=== PATIENT | female | born 1945 | race Caucasian/White ===

== ENCOUNTER 2020-12-30 21:30 | Emergency (ER) | payer MEDICARE ==
--- NOTE | 2020-12-30 23:05 | EDM.PDOC ---
ED HPI GENERAL MEDICAL PROBLEM - General Chief Complaint: Lower Extremity Injury/Pain Stated Complaint: HIP PAIN/FALL Time Seen by Provider: 12/30/20 22:09 Source of Information: Reports: Patient, Family History Limitations: Reports: No Limitations - History of Present Illness INITIAL COMMENTS - FREE TEXT/NARRATIVE: Lubna is a 75-year-old female presenting to the ED for evaluation of acute onset of left hip pain. This occurred after she fell today landing on her buttock. The patient has been wearing a walking boot on her right ankle since injuring it 5 days ago. She has had significant swelling and bruising but did not get it evaluated and instead has been putting it in a walking boot that she already had at home. She has had difficulty with ambulating due to pain with weightbearing on the right and when she fell today was unable to get back up because of pain in the bilateral lower extremities with weightbearing. Patient denies any other injuries. There is no significant internal rotation or shortening of the leg. There is no pain with palpation over the evelyn, groin, or proximal femur. There is pain with movement of the hip. Patient denies any numbness or tingling. Because she did not get the right ankle assessed days ago and is continuing to have increasing pain, we will also evaluate her ankle/foot at this time.. The patient has not been able to bear weight on either extremity since the fall. She lives with her daughter who has been available to help care for her, however, her daughter is concerned because the patient has had 2 falls now in 2 days. Yesterday she was able to catch her before she fell to the ground, however, today she was not. The daughter is very concerned that the patient is at increased fall risk and now that she cannot bear weight the daughter has no idea how should be able to care for her at home. Left Hip Pain Score (Numeric/FACES): 10 - Related Data Allergies Allergy/AdvReac Type Severity Reaction Status Date / Time No Known Allergies Allergy Verified 12/30/20 21:34 Home Meds: Home Meds Rosuvastatin [Crestor] 5 mg PO BEDTIME 12/30/20 [History] Past Medical History HEENT History: Reports: Impaired Vision Cardiovascular History: Reports: High Cholesterol - Past Surgical History Female Surgical History: Reports: Hysterectomy Social & Family History - Tobacco Use Tobacco Use Status *Q: Never Tobacco User - Recreational Drug Use Recreational Drug Use: No Review of Systems - Review of Systems Review Of Systems: See Below Constitutional: Reports: No Symptoms Eyes: Reports: No Symptoms Ears: Reports: No Symptoms Nose: Reports: No Symptoms Mouth/Throat: Reports: No Symptoms Respiratory: Reports: No Symptoms Cardiovascular: Reports: No Symptoms GI/Abdominal: Reports: No Symptoms Genitourinary: Reports: No Symptoms Musculoskeletal: Reports: Joint Pain (Left hip pain and right foot and ankle pain), Joint Swelling (Right foot and ankle swelling) Skin: Reports: No Symptoms Neurological: Reports: Difficulty Walking (Patient cannot bear weight due to pain) Psychiatric: Reports: No Symptoms ED EXAM, GENERAL - Physical Exam Exam: See Below Exam Limited By: No Limitations General Appearance: Alert, No Apparent Distress Eye Exam: Bilateral Eye: EOMI, PERRL Throat/Mouth: Normal Inspection, Normal Lips, Normal Oropharynx, Normal Voice, No Airway Compromise Head: Atraumatic, Normocephalic Neck: Normal Inspection Respiratory/Chest: No Respiratory Distress, Lungs Clear, Normal Breath Sounds Cardiovascular: Normal Peripheral Pulses, Regular Rate, Rhythm, No Murmur Peripheral Pulses: 2+: Posterior Tibial (L), Posterior Tibial (R) Back Exam: No: Paraspinal Tenderness, Vertebral Tenderness Extremities: No Pedal Edema, Normal Capillary Refill, Joint Swelling (Significant swelling, ecchymosis, and tenderness of the right foot. The patient has been wearing a walking boot for the last 5 days since the initial injury.), Limited Range of Motion (Pain with flexion and internal rotation of the left hip.), Other (Significant ecchymosis and swelling of the dorsal right foot. There is pain with movement of the first and second toes.) Neurological: Alert, Oriented, Normal Cognition, No Motor/Sensory Deficits Psychiatric: Normal Affect, Normal Mood Skin Exam: Warm, Dry, Intact, Normal Color Course - Vital Signs Last Recorded V/S: Last Vital Signs Temp 36.3 C 12/30/20 21:38 Pulse 114 H 12/30/20 21:38 Resp 18 12/30/20 21:38 BP 132/89 12/30/20 21:38 Pulse Ox 95 12/30/20 21:38 - Orders/Labs/Meds Orders: Active Orders 24 hr Category Date Time Status Foot Comp Min 3V Rt [CR] Stat Exams 12/30/20 22:19 Taken Hip Min 2V or 3V w Pelvis Lt [CR] Stat Exams 12/30/20 22:11 Taken Labs: Laboratory Tests 12/30/20 Range/Units 23:40 SARS CoV-2 RNA Rapid JAZMIN Negative - Radiology Interpretation Free Text/Narrative:: I reviewed the x-rays of the pelvis and left hip. There is no acute fractures. 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 Reviewed the x-rays of the right foot showing a displaced intra-articular fracture at the base of the second toe. - Re-Assessments/Exams Free Text/Narrative Re-Assessment/Exam: 12/30/20 23:20 I reviewed the findings of the x-rays with the family and patient. The concern is that the patient is not able to bear weight on either lower extremity at this time and her daughter does not feel that she can adequately care for the patient at home in her current condition. Although there is no fracture evident of either the pelvis or left hip, she has significant pain with certain movements and with standing. In addition, she has a displaced fracture of the second toe at the base that is now 5 days old. She has difficulty ambulating with a walking boot that she has been using. The daughter and patient came to the agreement that she likely needs admission for consideration of a transition care unit where she can get physical therapy and gait stability before going home. We have no beds available here at this time so I will reach out to [facility] in [place]. I discussed the case with Dr. Uribe who is the hospitalist on-call [facility] who accepts the patient in transfer for admission there. He will arrange for her to undergo further assessment including PT and OT. Departure - Departure Time of Disposition: 00:05 Disposition: DC/Tfer to [facility] 02 Clinical Impression: Left hip pain, Recurrent falls Fracture of toe of right foot Qualifiers: Encounter type: initial encounter Toe: lesser toe Fracture type: closed Phalanx: proximal Fracture alignment: displaced Qualified Code(s): S92.511A - Displaced fracture of proximal phalanx of right lesser toe(s), initial encounter for closed fracture - Discharge Information Referrals: Lindsay Ahmadi MD [Primary Care Provider] - Forms: ED Department Discharge Sepsis Event Note (ED) - Evaluation Sepsis Screening Result: No Definite Risk - Focused Exam Vital Signs: Vital Signs Temp Pulse Resp BP Pulse Ox 12/30/20 21:38 36.3 C 114 H 18 132/89 95 12/30/20 21:37 36.3 C 114 H 18 132/89 95 - Problem List & Annotations (1) Fracture of toe of right foot SNOMED Code(s): 28922378 Code(s): S92.911A - UNSP FRACTURE OF RIGHT TOE(S), INIT FOR CLOS FX Status: Acute Priority: Medium Qualifiers: Encounter type: initial encounter Toe: lesser toe Fracture type: closed Phalanx: proximal Fracture alignment: displaced Qualified Code(s): S92.511A - Displaced fracture of proximal phalanx of right lesser toe(s), initial encounter for closed fracture (2) Left hip pain SNOMED Code(s): 45210900 Code(s): M25.552 - PAIN IN LEFT HIP Status: Acute Priority: Medium (3) Recurrent falls SNOMED Code(s): 445486123 Code(s): R29.6 - REPEATED FALLS Status: Acute Priority: Medium - Problem List Review Problem List Initiated/Reviewed/Updated: Yes - My Orders Last 24 Hours: My Active Orders 12/30/20 22:11 Hip Min 2V or 3V w Pelvis Lt [CR] Stat 12/30/20 22:19 Foot Comp Min 3V Rt [CR] Stat - Assessment/Plan Last 24 Hours: My Active Orders 12/30/20 22:11 Hip Min 2V or 3V w Pelvis Lt [CR] Stat 12/30/20 22:19 Foot Comp Min 3V Rt [CR] Stat
--- NOTE | 2020-12-31 08:52 | CR ---
Hip Min 2V or 3V w Pelvis Lt CLINICAL HISTORY: Fall, pain FINDINGS: No fracture or dislocation is identified. There is mild joint space narrowing. There is some sclerosis in the upper left SI joint. IMPRESSION: No fracture or dislocation
--- NOTE | 2020-12-31 08:59 | CR ---
Foot Comp Min 3V Rt CLINICAL HISTORY: Injury FINDINGS: There is a slightly displaced fracture through the base of the second proximal phalanx with articular surface involvement. IMPRESSION: Fracture through base of second proximal phalanx
== END 2020-12-31 01:00 ==
LOC: JP.ED 21:30
DX: S92.511A Displaced fracture of proximal phalanx of right lesser toe(s), initial encounter for closed fracture (principal); M25.552 Pain in left hip; E78.00 Pure hypercholesterolemia, unspecified; R29.6 Repeated falls; Z79.899 Other long term (current) drug therapy; Z20.822 Contact with and (suspected) exposure to COVID-19; W18.39XA Other fall on same level, initial encounter
CPT/HCPCS: 73502; 73630; 99284; U0002

== ENCOUNTER 2021-08-03 06:18 | Day surgery (SDC) | payer MEDICARE ==
[2021-08-03] MEDS ORDERED: Sodium Chloride 0.9% 1,000 ML IV SCH (07:00)
[2021-08-03] MEDS ORDERED: Propofol 200 MG/20 ML SDV ONE (07:22)
[2021-08-03] MEDS ORDERED: fentaNYL 100 MCG/2 ML SDV ONE (07:22)
== END 2021-08-03 09:50 | disposition home or self-care (01) ==
LOC: JP.SDS 06:18
PROVIDERS: ATTEND Surgery
DX: Z12.11 Encounter for screening for malignant neoplasm of colon (principal); E78.5 Hyperlipidemia, unspecified; Z88.8 Allergy status to other drugs, medicaments and biological substances
CPT/HCPCS: G0121; J2704; J3010; J7030

== ENCOUNTER 2023-09-07 07:18 | Day surgery (SDC) | payer MEDICARE ==
[2023-09-07] MEDS: Sodium Chloride 0.9% 10 ML Syringe FLUSH PRN (08:02)
== END 2023-09-07 09:00 | disposition home or self-care (01) ==
LOC: JP.SDS 07:18
PROVIDERS: ATTEND Ophthalmology
DX: H26.9 Unspecified cataract (principal); K21.9 Gastro-esophageal reflux disease without esophagitis; Z88.8 Allergy status to other drugs, medicaments and biological substances; Z91.018 Allergy to other foods
CPT/HCPCS: 66984; J3490; V2632

== ENCOUNTER 2023-09-21 07:52 | Day surgery (SDC) | payer MEDICARE ==
[2023-09-21] MEDS: Sodium Chloride 0.9% 10 ML Syringe FLUSH PRN (08:27)
[2023-09-21] MEDS ORDERED: Sodium Chloride 0.9% 10 ML Syringe FLUSH PRN (09:45)
== END 2023-09-21 09:33 | disposition home or self-care (01) ==
LOC: JP.SDS 07:52
PROVIDERS: ATTEND Ophthalmology
DX: H25.12 Age-related nuclear cataract, left eye (principal); Z88.8 Allergy status to other drugs, medicaments and biological substances
CPT/HCPCS: 66984; J3490; V2632

== ENCOUNTER 2024-02-17 12:21 | Inpatient (IN) | payer MEDICARE ==
[2024-02-17] MEDS: Acetaminophen 325 MG Tab PO ONE (12:40)
[2024-02-17 15:26] LABS: BASOPHILS ABSOLUTE AUTO 0.03 K/uL (0.00-0.10); BASOPHILS PERCENT AUTO 0.4 % (0.1-1.3); EOSINOPHILS PERCENT AUTO 0.1 % (0.0-5.4); HEMATOCRIT 42.8 % (34.3-46.0); HEMOGLOBIN 14.7 g/dL (11.2-15.5); IMMATURE GRAN PERCENT AUTO 0.2 % (0.0-0.7); LYMPHOCYTES ABSOLUTE AUTO 1.42 K/uL (0.8-3.3); LYMPHOCYTES PERCENT AUTO 16.8 % (11.4-47.7); MEAN CORPUSCULAR HEMOGLOBIN 29.5 pg (31.6-35.5); MEAN CORPUSCULAR HGB CONC 34.3 g/dL (31.6-35.5); MEAN CORPUSCULAR VOLUME 85.9 fL (81.4-99.0); MONOCYTES ABSOLUTE AUTO 0.88 K/uL (0.20-0.90); MONOCYTES PERCENT AUTO 10.4 % (3.3-12.6); NEUTROPHILS ABSOLUTE AUTO 6.11 K/uL (1.0-7.6); NEUTROPHILS PERCENT AUTO 72.1 % (40.0-78.1); PLATELET COUNT,PLT 194 K/uL (130-375); RED BLOOD CELL COUNT 4.98 M/uL (3.77-5.24); WHITE BLOOD CELL COUNT,WBC 8.5 K/uL (3.2-11.0)
[2024-02-17 15:27] LABS: EOSINOPHILS ABSOLUTE AUTO 0.01 K/uL (0.00-0.40); IMMATURE GRAN ABSOLUTE AUTO 0.02 K/uL (0.00-0.23)
[2024-02-17] MEDS: Sodium Chloride 0.9% 1,000 ML IV ONE (15:27)
[2024-02-17 15:51] LABS: A/G RATIO 0.9 (1.2-2.2); ALANINE AMINOTRANSFERASE,ALT 24 U/L (12-78); ALBUMIN 3.3 g/dL (3.4-5.0); ALKALINE PHOSPHATASE 56 U/L (46-116); ASPARTATE AMNIOTRANSFERASE,AST 19 U/L (15-37); BILIRUBIN TOTAL 0.9 mg/dL (0.2-1.0); BLOOD UREA NITROGEN,BUN 20 mg/dL (7-18); CALCIUM 9.1 mg/dL (8.5-10.1); CARBON DIOXIDE,CO2 24 mmol/L (21-32); CHLORIDE,CL 100 mmol/L (100-108); CREATININE 0.7 mg/dL (0.6-1.0); EST CRCL DRUG DOSING (CG) 56.27 mL/min; ESTIMATED GFR 88 mL/min (>60); GLUCOSE RANDOM 116 mg/dL (74-106); POTASSIUM,K 3.8 mmol/L (3.6-5.2); PROTEIN TOTAL,TP 6.8 g/dL (6.4-8.2); SODIUM,NA 136 mmol/L (140-148)
[2024-02-17 15:52] LABS: ANION GAP 15.8 mmol/L (5.0-14.0)
[2024-02-17] MEDS ORDERED: Propofol 200 MG/20 ML SDV ONE ×2 (15:55)
[2024-02-17] MEDS ORDERED: Ondansetron 4 MG Tab.DIS PO PRN (19:29)
[2024-02-17] MEDS ORDERED: Magnesium Hydroxide 400 MG/5 ML Susp 30 ML Cup PO PRN (19:29)
[2024-02-17] MEDS ORDERED: Ondansetron 4 MG/2 ML SDV IV PRN (19:29)
[2024-02-17] MEDS: Acetaminophen 325 MG Tab PO PRN (19:55)
[2024-02-17] MEDS: Melatonin 3 MG Tab PO PRN (19:56)
[2024-02-17] MEDS: Calcium Carbonate/Vitamin D3 1500 MG-400 Units Tab PO SCH (19:57)
[2024-02-17] MEDS: Cholecalciferol (Vitamin D3) 25 MCG Tab PO SCH (19:57)
[2024-02-17] MEDS: Sennosides/Docusate Sodium 50-8.6 MG Tab PO PRN (19:57)
[2024-02-18] MEDS: traMADol 50 MG Tab PO PRN (08:47)
[2024-02-18] MEDS: Magnesium Oxide 400 MG Tab PO SCH (08:48)
[2024-02-18] MEDS: Ascorbic Acid 500 MG Tab PO SCH (08:49)
[2024-02-19] MEDS: traMADol 50 MG Tab PO PRN (03:47)
[2024-02-19] MEDS: Lactobacillus Rhamnosus GG (Probiotic) Cap PO SCH (09:25)
[2024-02-19] MEDS ORDERED: Ondansetron 4 MG/2 ML SDV ONE (10:39)
[2024-02-19] MEDS ORDERED: Dexamethasone 4 MG/ML SDV ONE (10:39)
[2024-02-19] MEDS ORDERED: fentaNYL 100 MCG/2 ML SDV ONE (10:39)
[2024-02-19] MEDS ORDERED: Bupivacaine 0.5% 30 ML SDV ONE (10:39)
[2024-02-19] MEDS ORDERED: Propofol 200 MG/20 ML SDV ONE ×3 (10:39→18:20)
[2024-02-19] MEDS ORDERED: Bupivacaine 0.5% 50 ML MDV ONE (12:10)
[2024-02-19] MEDS: ceFAZolin 1 GM in Premix Bag 1 BAG IV ONE (15:15)
[2024-02-19] MEDS ORDERED: Midazolam 1 MG/ML 2 ML SDV ONE ×2 (15:27→18:05)
[2024-02-19] MEDS ORDERED: Lactated Ringers 1,000 ML ONE ×2 (18:39)
[2024-02-19] MEDS ORDERED: Labetalol 20 MG/4 ML Syringe ONE (18:40)
[2024-02-19] MEDS ORDERED: oxyCODONE 5 MG Tab PO PRN (19:10)
[2024-02-22 05:36] LABS: HEMATOCRIT 37.4 % (34.3-46.0); HEMOGLOBIN 12.4 g/dL (11.2-15.5); MEAN CORPUSCULAR HEMOGLOBIN 29.5 pg (31.6-35.5); MEAN CORPUSCULAR HGB CONC 33.2 g/dL (31.6-35.5); RED BLOOD CELL COUNT 4.2 M/uL (3.77-5.24); WHITE BLOOD CELL COUNT,WBC 8.4 K/uL (3.2-11.0)
[2024-02-22 05:48] LABS: A/G RATIO 0.8 (1.2-2.2); ALANINE AMINOTRANSFERASE,ALT 21 U/L (12-78); ALBUMIN 2.6 g/dL (3.4-5.0); ALKALINE PHOSPHATASE 52 U/L (46-116); ASPARTATE AMNIOTRANSFERASE,AST 17 U/L (15-37); BILIRUBIN DIRECT 0.11 mg/dL (0.0-0.2); BILIRUBIN INDIRECT 0.39; BILIRUBIN TOTAL 0.5 mg/dL (0.2-1.0); BLOOD UREA NITROGEN,BUN 10 mg/dL (7-18); C-REACTIVE PROTEIN 9.67 mg/dL (<0.50); CALCIUM 9.6 mg/dL (8.5-10.1); CARBON DIOXIDE,CO2 28 mmol/L (21-32); CHLORIDE,CL 103 mmol/L (100-108); CREATININE 0.7 mg/dL (0.6-1.0); EST CRCL DRUG DOSING (CG) 56.27 mL/min; ESTIMATED GFR 88 mL/min (>60); GLUCOSE RANDOM 121 mg/dL (74-106); MAGNESIUM 1.8 mg/dL (1.8-2.4); PHOSPHORUS 3.6 mg/dL (2.5-4.9); POTASSIUM,K 3.9 mmol/L (3.6-5.2); SODIUM,NA 139 mmol/L (140-148)
[2024-02-22 05:49] LABS: ANION GAP 11.9 mmol/L (5.0-14.0)
== END 2024-02-22 10:48 | DRG 494 ==
LOC: JP.ED 12:21 → JP.MS 17:40
PROVIDERS: ADMIT Internal Medicine; ATTEND Internal Medicine
PROC: 0RQK4ZZ Repair Left Shoulder Joint, Percutaneous Endoscopic Approach (ICD-10-PCS; 2024-02-19)
PROC: 0PU Upper Bones, Supplement (ICD-10-PCS; principal; 2024-02-19 11:00)
DX: S42.292A Other displaced fracture of upper end of left humerus, initial encounter for closed fracture (principal); S43.005A Unspecified dislocation of left shoulder joint, initial encounter; H54.7 Unspecified visual loss; E78.00 Pure hypercholesterolemia, unspecified; M19.90 Unspecified osteoarthritis, unspecified site; Z66 Do not resuscitate; M54.9 Dorsalgia, unspecified; G89.29 Other chronic pain; E89.0 Postprocedural hypothyroidism; R27.0 Ataxia, unspecified; E03.9 Hypothyroidism, unspecified; Z88.8 Allergy status to other drugs, medicaments and biological substances; Z79.899 Other long term (current) drug therapy; Z86.0100 Personal history of colon polyps, unspecified; Z98.49 Cataract extraction status, unspecified eye; Z90.49 Acquired absence of other specified parts of digestive tract; Z87.891 Personal history of nicotine dependence; W19.XXXA Unspecified fall, initial encounter
CPT/HCPCS: 23655; 23675; 36415; 73020 ×4; 73030 ×2; 73200; 76377; 80053; 85025; 99156; 99157; 99284; 99285; A9270; J2704 ×2; J7030; 01630-QZ; 80069; 80076; 83735; 85027; 86140; 97110-GO; 97110-GP; 97161-GP; 97165-GO; 99222; 99231; 99232; 99239; C1713; J0665; J0689; J1100; J1920; J2250; J2405; J3010; J7120